=== PATIENT | female | born 1960 | race Caucasian/White ===

== ENCOUNTER → 2019-01-10 15:42 | Outpatient (CLI) | payer BC ==
[~2019-01-10 15:42] MED LIST: CELEXA20 MG PO; PHENTERMINE HCL30 MG PO; VYTORIN 10-40 M1 TAB PO
== END | disposition home or self-care (01) ==
LOC: D.CT 15:42
PROVIDERS: ATTEND Family Medicine
DX: Q25.8 Other congenital malformations of other great arteries (principal)